=== PATIENT | female | born 1990 | race Hispanic/Latino ===

== ENCOUNTER 2024-05-09 08:12 | Emergency (ER) | payer SELFPAY ==
[2024-05-09] MEDS ORDERED: Acetaminophen 325 MG TAB ONE (08:25)
[2024-05-09] MEDS ORDERED: Ibuprofen 200 MG TAB ONE (08:25)
[2024-05-09] MEDS ORDERED: Ondansetron ODT 4 MG TAB ONE (08:26)
== END 2024-05-09 10:43 | disposition home or self-care (01) ==
LOC: ERS 08:12
DX: J02.9 Acute pharyngitis, unspecified (principal)
CPT/HCPCS: 87081; 87428; 87430; 99283; Q0162